=== PATIENT | male | born 1950 | race Caucasian/White ===

== ENCOUNTER 2022-09-22 07:45 | Day surgery (SDC) | payer MEDICARE, BC ==
[2022-09-18 13:27] VITALS: BMI 30.8
[2022-09-22] MEDS ORDERED: PROPOFOL 20 ML ONE (11:56)
== END 2022-09-22 13:50 | disposition home or self-care (01) ==
LOC: CSHSDC 07:45
PROVIDERS: ATTEND Otolaryngology Otolaryngic Allergy
PROC: 0CJY8ZZ Inspection of Mouth and Throat, Via Natural or Artificial Opening Endoscopic (ICD-10-PCS; principal; 2022-09-22)
DX: G47.33 Obstructive sleep apnea (adult) (pediatric) (principal); J31.0 Chronic rhinitis; J34.3 Hypertrophy of nasal turbinates; R09.81 Nasal congestion; J32.9 Chronic sinusitis, unspecified; R09.82 Postnasal drip; I10 Essential (primary) hypertension; Z79.899 Other long term (current) drug therapy; Z88.0 Allergy status to penicillin; Z88.8 Allergy status to other drugs, medicaments and biological substances; Z90.49 Acquired absence of other specified parts of digestive tract; Z98.890 Other specified postprocedural states
CPT/HCPCS: J2704

== ENCOUNTER → 2022-11-03 | Day surgery (SDC) | payer MEDICARE, BC ==
[2022-11-02 14:06] VITALS: BMI 28.8
[~2022-11-03] MED LIST: Clindamycin/D5W 600 mg/50 ml Premix Bag ONE; EPINEPHrine 1 MG/ML AMP ONE; Fentanyl 100 MCG/2 ML VIAL ONE; Lidocaine 1% PF 5 ML VIAL ONE; Lidocaine 1% w/Epinephrine 1:100K 20 ML VIAL ONE; Lidocaine 2% PF 5 ML VIAL ONE; Midazolam HCl 2 mg/2 ml Vial ONE; Ondansetron PF 4 MG/2 ML Vial ONE; PHENYLEPHRINE-NS 100 MCG/ML 10 ML SYRINGE ONE; PROPOFOL 20 ML ONE; Phenylephrine 10 MG/ML VIAL ONE; Rocuronium Bromide 10 MG/ML (10ML VIAL) ONE; ePHEDrine Sulfate 50 MG/10 ML VIAL ONE
== END ==
LOC: CSHSDC 06:05
PROVIDERS: ATTEND Otolaryngology Otolaryngic Allergy
PROC: 0JH60MZ Insertion of Stimulator Generator into Chest Subcutaneous Tissue and Fascia, Open Approach (ICD-10-PCS; principal; 2022-11-03)
PROC: 00HE0MZ Insertion of Neurostimulator Lead into Cranial Nerve, Open Approach (ICD-10-PCS; 2022-11-03)
DX: G47.33 Obstructive sleep apnea (adult) (pediatric) (principal); I10 Essential (primary) hypertension; G20 Parkinson's disease; J44.9 Chronic obstructive pulmonary disease, unspecified; Z79.51 Long term (current) use of inhaled steroids; Z79.899 Other long term (current) drug therapy; Z88.0 Allergy status to penicillin; Z88.8 Allergy status to other drugs, medicaments and biological substances
CPT/HCPCS: 36416; 70360; C1787; C1820; C1898; J0171; J2001; J2250; J2370; J2405; J2704; J3010; J3490; J7611